=== PATIENT | female | born 1985 | race Caucasian/White ===

== ENCOUNTER 2020-09-17 22:53 | Inpatient (IN) | payer OTHER ==
[~2020-09-17] VITALS: Ht 167.6 cm; Wt 76.7 kg
[~2020-09-17 22:53] MED LIST: DSS100 PO; IBUP-2070 PO; PRENATAL ONE T1 EACH
[2020-09-17] MEDS ORDERED: AMPICILLIN SODIUM 2 GM/NS 100 ML IV ONE (23:30)
[2020-09-17] MEDS ORDERED: TERBUTALINE SULFATE 1 MG/ML VIAL SQ PRN (23:30)
[2020-09-17] MEDS ORDERED: LIDOCAINE/PF 1% 30 ML VIAL SQ PRN (23:30)
[2020-09-17] MEDS ORDERED: OXYTOCIN 20 UNITS/LACT RINGERS 1,000 ML IV ONE (23:30)
[2020-09-17] MEDS ORDERED: METOCLOPRAMIDE HCL 5 MG/ML 2 ML VIAL IVP PRN (23:30)
[2020-09-17] MEDS ORDERED: CLINDAMYCIN 900 MG/D5% WATER 50 ML IV SCH (23:30)
[2020-09-17] MEDS ORDERED: CITRIC ACID/SODIUM CITRATE 30 ML SOLUTION UDCUP PO PRN (23:30)
[2020-09-17 23:57] LABS: COVID AG,FIA SOURCE NASOPHARYNGEAL
[2020-09-18 00:01] LABS: BASOPHILS % (AUTO) 0.6 % (0.0-2.0); EOSINOPHILS % (AUTO) 0.2 % (1.0-6.0); HEMATOCRIT 35.7 % (36-46); HEMOGLOBIN 11.7 g/dL (12.0-16.0); LYMPHOCYTES # (AUTO) 2.6 K/uL (1.0-4.8); LYMPHOCYTES % (AUTO) 18.6 % (22.0-44.0); MEAN CORPUSCULAR HEMOGLOBIN 29.5 pg (26.0-34.0); MEAN CORPUSCULAR HGB CONC 32.7 G/dL (31.0-37.0); MEAN CORPUSCULAR VOLUME 90 fL (80-100); MONOCYTES # (AUTO) 0.7 K/uL (0.1-1.0); MONOCYTES % (AUTO) 4.8 % (2.0-9.0); NEUTROPHILS # (AUTO) 10.6 K/uL (1.8-7.7); NEUTROPHILS % (AUTO) 75.8 % (40.0-70.0); PLATELET COUNT (AUTO)-OB 257 K/uL (150-450); RED BLOOD CELL COUNT(AUTO) 3.96 MIL/uL (4.00-5.20); RED CELL DISTRIBUTION WIDTH 13.8 % (11.5-14.5)
[2020-09-18] MEDS: RINGERS SOLUTION,LACTATED 1,000 ML IV SCH ×3 (00:15→06:07)
[2020-09-18 00:41] VITALS: BP 121/78
[2020-09-18] MEDS ORDERED: INFLUENZA VIRUS VACCINE QVS 2020-21 (6MO+)/PF 60 MCG/0.5 ML SYRINGE IM ONE (00:45)
[2020-09-18] MEDS ORDERED: ROPIVACAINE HCL/PF 0.2% 100 ML ED ONE (01:42)
[2020-09-18] MEDS ORDERED: ONDANSETRON HCL 4 MG/2 ML VIAL IVP PRN (02:15)
[2020-09-18] MEDS ORDERED: ROPIVACAINE HCL/PF 0.2% 100 ML ED PRN (02:15)
[2020-09-18] MEDS ORDERED: DiphenhydrAMINE HCL 50 MG/ML VIAL IVP PRN (02:15)
[2020-09-18] MEDS ORDERED: AMPICILLIN SODIUM 1 GM/NS 50 ML IV SCH (03:30)
[2020-09-18] MEDS ORDERED: OXYTOCIN 30 UNITS/LACT RINGERS 500 ML IV PRN (04:00)
[2020-09-18] MEDS ORDERED: RINGERS SOLUTION,LACTATED 1,000 ML IV ONE (08:30)
[2020-09-18] MEDS ORDERED: GLYCERIN/WITCH HAZEL LEAF 40 PADS JAR TP PRN (08:30)
[2020-09-18] MEDS ORDERED: BENZOCAINE 20%/MENTHOL 56 GM SPRAY CANISTER TP PRN (08:30)
[2020-09-18] MEDS ORDERED: MEASLES/MUMPS/RUBELLA VACCINE, LIVE 0.5 ML/VIAL SQ ONE (08:30)
[2020-09-18] MEDS ORDERED: LANOLIN 7 GM OINTMENT TP PRN (08:30)
[2020-09-18] MEDS ORDERED: OxyCODONE HCL/ACETAMINOPHEN 5-325 MG TABLET PO PRN (08:30)
[2020-09-18] MEDS: IBUPROFEN 600 MG TABLET PO PRN ×2 (10:10→20:45)
[2020-09-18] MEDS: OxyCODONE HCL/ACETAMINOPHEN 5-325 MG TABLET PO PRN ×2 (11:14→15:39)
[2020-09-18] MEDS: MAGNESIUM HYDROXIDE SUSPENSION 30 ML UDCUP PO SCH (20:44)
[2020-09-19] MEDS: IBUPROFEN 600 MG TABLET PO PRN (07:47)
[2020-09-19] MEDS: MAGNESIUM HYDROXIDE SUSPENSION 30 ML UDCUP PO SCH (07:47)
[2020-09-19] MEDS ORDERED: IBUP-2071 PO (08:32)
[2020-09-19] MEDS ORDERED: FERR-89 PO (08:33)
[2020-09-19] MEDS ORDERED: DOCU-275 PO (08:33)
== END 2020-09-19 11:35 | disposition home or self-care (01) | DRG 807 ==
LOC: 4S 22:53 → OBSVTOIN 22:53
PROVIDERS: ADMIT Obstetrics & Gynecology; ATTEND Obstetrics & Gynecology
PROC: 10E0XZZ Delivery of Products of Conception, External Approach (ICD-10-PCS; principal; 2020-09-18)
PROC: 0HQ9XZZ Repair Perineum Skin, External Approach (ICD-10-PCS; 2020-09-18)
PROC: 3E0R3BZ Introduction of Anesthetic Agent into Spinal Canal, Percutaneous Approach (ICD-10-PCS; 2020-09-18)
PROC: 00HU33Z Insertion of Infusion Device into Spinal Canal, Percutaneous Approach (ICD-10-PCS; 2020-09-18)
PROC: 3E02340 Introduction of Influenza Vaccine into Muscle, Percutaneous Approach (ICD-10-PCS; 2020-09-18)
DX: O70.0 First degree perineal laceration during delivery (principal); Z37.0 Single live birth; Z3A.39 39 weeks gestation of pregnancy; Z20.828 Contact with and (suspected) exposure to other viral communicable diseases; Z23 Encounter for immunization
CPT/HCPCS: 86850; 86900; 86901; 87426; 90686; J2590; J2795; J7120